=== PATIENT | male | born 1985 | race Caucasian/White ===

== ENCOUNTER 2016-11-01 03:47 | Emergency (ER) | payer OTHER ==
[~2016-11-01] VITALS: Ht 175.3 cm; Wt 104.8 kg
[2016-11-01 03:52] VITALS: TEMP 36.8; Ht 175.3 cm; Wt 104.8 kg
[2016-11-01] MEDS ORDERED: PROPARACAINE HCL 0.5% OP SOLN 15 ML BTL ONE (04:03)
--- NOTE | 2016-11-01 04:24 | EMERGENCY ROOM VISIT NOTE ---
History Report prepared by Jerry: Carlene Kuo Under the Supervision of: Dr. Bao Martínez M.D. First contact with patient: 04:02 Chief Complaint: EYE ASSESSMENT Stated Complaint: RT EYE-CHEMICAL EXPOSURE AT WORK,RED,DRY,STINGING History of Present Illness The patient is a 31 year old male who presents to the Emergency Room for an eye assessment. The patient was exposed to a chemical in his right eye at work at 0230. He rinsed his eye at the emergency eye wash station for 15 minutes and then applied saline solution to the eye. He is able to see out of his eye but it is slightly more blurry than his left eye. The patient is experiencing pain that he rates as a 2/10 in severity. He wears glasses and does not wear contact lenses. 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 Review of Systems See HPI for pertinent positives & negatives. A total of 10 systems reviewed and were otherwise negative. Past Medical & Surgical Medical Problems: (1) Diabetes mellitus (2) Hypertension Surgical Problems: (1) Hx of tonsillectomy Family History Diabetes mellitus FH: cancer FH: heart disease Hypertension Seizures Social History Smoking Status: Never Smoker Smokeless Tobacco Use: No Alcohol Use: none Drug Use: none Marital Status: Housing Status: lives with significant other Occupation Status: employed Physical Exam Vital Signs Date Time Temp Pulse Resp B/P Pulse Ox O2 Delivery O2 Flow Rate FiO2 11/01/16 03:52 36.8 72 20 142/89 98 Room Air Physical Exam CONSTITUTIONAL: Mild distress. HEENT: No icterus, injected conjunctiva of the right eye, moist mucous membranes NECK: No meningismus, trachea is midline. CARDIOVASCULAR: Regular rate, normal perfusion RESPIRATORY: Unlabored breathing. Clear to auscultation. GASTROINTESTINAL: Non-tender GENITOURINARY: No flank tenderness MUSCULOSKELETAL: Full range of motion NEUROLOGIC: No acute gross focal deficits. PSYCHIATRIC: Normal affect SKIN: Normal for ethnicity. Medical Decision & Procedures ED Course 0402: Past medical records reviewed. The patient was evaluated in room B7. A complete history and physical examination was performed. 0403: Proparacaine HCl 4 drops 0430: Percocet 5/325 mg PO 1 homepack 0500: Ciprofloxacin HCl 0509: I reassessed the patient at this time. He is feeling better and resting comfortably. I discussed the results and treatment plan with the patient. I answered all pertaining questions that he had. He expressed understanding and verbalized agreement. The patient will be discharged home. Medical Decision Differential diagnoses includes chemical exposure to the eye. 31-year-old presents to the emergency room for evaluation of Exposure to eye while at work. He denies prior eye pathology and does not wear contacts. He reports he washed the eye out for 15 minutes at work prior to coming to the emergency room. He was given proparacaine with complete relief of his eye pain and visual acuities close to baseline with the use of eyeglasses for correction. Fluorescein staining did not reveal clear uptake. Colby lens applied and 1 L normal saline used for irrigation. Given Percocet home pack and Cipro drops. Instructions for follow-up to ophthalmology through his Worker 's Compensation policy Impression Primary Impression: Chemical exposure of eye Scribe Attestation The scribe's documentation has been prepared under my direction and personally reviewed by me in its entirety. I confirm that the note above accurately reflects all work, treatment, procedures, and medical decision making performed by me. 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 Take your antibiotic drops every 4-6 hours and pain medications as needed.
[2016-11-01] MEDS ORDERED: PERCOCET HOME PACK PO ONE (04:30)
[2016-11-01] MEDS ORDERED: CIPROFLOXACIN HCL 0.3% OP SOLN 2.5 ML BTL ONE (05:00)
[2016-11-01 05:25] VITALS: BP 140/88; PULSE 67; O2SAT 98
[2016-11-01] MEDS ORDERED: CIPROFLOXACIN HCL 0.3% OP SOLN 2.5 ML BTL OP ONE (08:00)
== END 2016-11-01 05:50 | disposition home or self-care (01) ==
LOC: C.EDB 03:50
DX: Z77.098 Contact with and (suspected) exposure to other hazardous, chiefly nonmedicinal, chemicals (principal); Z57.5 Occupational exposure to toxic agents in other industries; H57.11 Ocular pain, right eye; E11.9 Type 2 diabetes mellitus without complications; I10 Essential (primary) hypertension; Z83.3 Family history of diabetes mellitus; Z82.49 Family history of ischemic heart disease and other diseases of the circulatory system; Z84.89 Family history of other specified conditions

== ENCOUNTER → 2016-12-23 | Outpatient (CLI) | payer BC ==
[2016-12-23 13:54] LABS: DAYS OF ABSTINENCE 7; METHOD OF COLLECTION MASTURBATION; SEMEN TIME OF COLLECTION 920; TYPE OF SPECIMEN CONTAINER STERILE CUP
[2016-12-23 13:55] LABS: SEMEN COLOR GRAY OR GRAY-WHITE (GRY/GRYWHTE)
[2016-12-23 13:56] LABS: SPERM VIABILITY STAIN NOT INDICATED % (>58%)
--- NOTE | 2016-12-24 21:38 | CODING QUERY NO DIAGNOSIS ---
: 1985 TREATMENT RENDERED WITHOUT A DIAGNOSIS To promote full compliance with coding requirements relating to patient care, physician participation is requested in all cases of sales enablement manager uncertainty. Please assist us with providing a diagnosis/symptom for the test(s) below: A diagnosis/symptom was not documented on your Order. A valid diagnosis/symptom is required to bill all insurances. Please remember that we are unable to code a diagnosis of rule out, probable, possible, questionable, or suspected. Tests that require a diagnosis: DOS: 12/23/16 * Semen Analysis DIAGNOSIS: Provider Signature: Date: Thank you Joyce Montesinos Health Information Management Once completed, please kindly fax back to [phone] For questions please call [phone]
== END | disposition home or self-care (01) ==
LOC: C.LAB 09:41
DX: N46.9 Male infertility, unspecified (principal)